=== PATIENT | male | born 1990 | race African-American/Black ===

== ENCOUNTER 2019-12-17 21:14 | Emergency (ER) | payer MEDICAID ==
[~2019-12-17] VITALS: Ht 177.8 cm; Wt 95.3 kg
[~2019-12-17 21:14] MED LIST: ARIP15TA2 PO; OLAN10TA3 PO
[2019-12-17 21:53] VITALS: BP_SYST 150
[2019-12-17] MEDS ORDERED: clonazePAM 0.5 MG TABLET PO ONE (22:45)
[2019-12-17 23:05] VITALS: BP_SYST 150
== END 2019-12-17 23:05 | disposition home or self-care (01) ==
LOC: SED 21:14
DX: F14.10 Cocaine abuse, uncomplicated (principal); F11.10 Opioid abuse, uncomplicated; F20.9 Schizophrenia, unspecified; F31.9 Bipolar disorder, unspecified; F17.200 Nicotine dependence, unspecified, uncomplicated; J45.909 Unspecified asthma, uncomplicated; Z88.6 Allergy status to analgesic agent
CPT/HCPCS: 99283

== ENCOUNTER 2021-04-12 00:58 | Emergency (ER) | payer MEDICAID, SELFPAY ==
[~2021-04-12] VITALS: Ht 180.3 cm; Wt 108.9 kg
[2021-04-12 00:58] VITALS: BP_SYST 187
--- NOTE | 2021-04-12 01:10 | NUR ---
ER Dr. Melton at bedside examining patient.
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
[2021-04-12] MEDS ORDERED: NACL 0.9% 1,000 ML IV ONE (01:30)
[2021-04-12] MEDS ORDERED: LORazepam 2 MG/ML VIAL IVP ONE ×2 (01:30→02:00)
--- NOTE | 2021-04-12 01:30 | NUR ---
# 18 gauge angiocath placed to right hand. Use of asceptic technique. Opsite placed over site. Blood return noted. Blood for lab drawn from site. Flushed with 10 cc of normal saline. No evidence of infiltration noted. Patient tolerated well.
--- NOTE | 2021-04-12 01:40 | NUR ---
Medicated w/ 2mg of ativan ivp per MD orders. IVF 0.9%NS x2000 ml infusing with no s/s of infiltration at this time. Will cont to monitor and observe for any adverse reaction. Bed to low position sr up, continue to monitor.
[2021-04-12 01:46] LABS: BASOPHILS # (AUTO) 0.1 K/uL (0.0-0.2); BASOPHILS % (AUTO) 0.7 % (0.0-2.0); EOSINOPHILS # (AUTO) 0.1 K/uL (0.0-0.4); EOSINOPHILS % (AUTO) 0.8 % (0.0-4.0); HEMATOCRIT 47.5 % (36-54); HEMOGLOBIN 15.5 g/dL (14.0-18.0); LYMPHOCYTES # (AUTO) 2.5 K/uL (1.0-5.5); LYMPHOCYTES % (AUTO) 14.3 % (20.5-51.5); MEAN CORPUSCULAR HEMOGLOBIN 29 pg (27-31); MEAN CORPUSCULAR HGB CONC 33 % (32-36); MEAN CORPUSCULAR VOLUME 90 fL (79.0-98.0); MONOCYTES # (AUTO) 1.8 K/uL (0.0-1.0); MONOCYTES % (AUTO) 10.1 % (1.7-9.3); NEUTROPHILS % (AUTO) 74.1 % (40.0-70.0); PLATELET COUNT (AUTO) 326 K/uL (130-430); RED CELL DISTRIBUTION WIDTH 15.6 % (9.0-15.0); WHITE BLOOD COUNT (AUTO) 17.5 K/uL (4.8-10.8)
[2021-04-12 01:58] LABS: ANION GAP 16 (5-15); CALCIUM 8.7 mg/dL (8.4-11.0); CHLORIDE 98 mmol/L (98-107); CREATININE 1.85 mg/dL (0.55-1.30); GLUCOSE 85 mg/dL (70-99); POTASSIUM 4.2 mmol/L (3.5-5.1); SODIUM SERUM 134 mmol/L (136-145); UREA NITROGEN, BLOOD 22 mg/dL (8-21)
[2021-04-12] MEDS ORDERED: HALOPERIDOL LACTATE 5 MG/ML VIAL ONE (01:58)
[2021-04-12] MEDS ORDERED: LORazepam 2 MG/ML VIAL ONE (01:58)
--- NOTE | 2021-04-12 01:59 | NUR ---
Patient continues w/ increased restlessness (singing out loud). Medicated w/ Haldol 5mg im and to be given 2nd dose of Ativan ivp per MD orders. IVF infusing with no s/s of infiltration at this time. Will cont to monitor and observe for any adverse reaction. Bed to low position sr up, continue to monitor.
[2021-04-12] MEDS ORDERED: HALOPERIDOL LACTATE 5 MG/ML VIAL IM ONE (02:00)
[2021-04-12 02:02] LABS: ACETAMINOPHEN < 1 ug/mL (1-30)
[2021-04-12 02:03] LABS: ALANINE AMINOTRANSFERASE 65 U/L (12-78); ALBUMIN 3.9 g/dL (3.4-4.8); ASPARTATE AMINOTRANSFERASE 136 U/L (10-37); CHOLESTEROL 289 mg/dL (<200); GFR AFRICAN AMERICAN 55 mL/min (>90); HDL CHOLESTEROL 24 mg/dL (>45); LDL CHOLESTEROL 244 mg/dL (<100); TOTAL BILIRUBIN 1.2 mg/dL (0.0-1.0); TRIGLYCERIDES 84 mg/dL (30-150)
[2021-04-12 02:04] LABS: ALCOHOL, BLOOD < 3 mg/dL (<10)
--- NOTE | 2021-04-12 02:20 | NUR ---
Patient accidentally dislodged iv to right hand, restarted iv h.l. # 20 gauge angiocath placed to left hand. Use of asceptic technique. Opsite placed over site. Blood return noted. Flushed with 10 cc of normal saline. No evidence of infiltration noted. Patient tolerated well.
--- NOTE | 2021-04-12 02:39 | NUR ---
patient pulled out 2nd iv h.l. to left hand. Patient returned to bed then fell to sleep. Will let patient sleep and will insert another h.l. upon patient complete rest or if further medications is needed. patient is cooperative and does allow iv h.l. to be started.
--- NOTE | 2021-04-12 04:51 | NUR ---
Asleep at this time w/ no bizarre or unusual behavior noted. continue to monitor. Patient resting quietly. No acute distress noted. Vital signs within normal range.
--- NOTE | 2021-04-12 07:11 | NUR ---
REPORT RECEIVED FROM BLAISE DOTSON FOR CONTINUING CARE. PT IS SLEEPING IN BED, NO DISTRESS, V/S STABLE
[2021-04-12] MEDS ORDERED: OLAN10TA3 PO (08:45)
--- NOTE | 2021-04-12 09:00 | NUR ---
PT REFUSING TO PROVIDE URINE SAMPLE
--- NOTE | 2021-04-12 09:19 | NUR ---
Patient given written and verbal discharge instructions and verbalizes understanding. ER MD discussed with patient the results and treatment provided. Patient in stable condition. ID arm band removed. Rx of OLANZAPINE given. Patient educated on pain management and to follow up with PMD. Pain Scale 0/10. Opportunity for questions provided and answered. Medication side effect fact sheet provided.
[2021-04-12 09:20] VITALS: BP_SYST 115
== END 2021-04-12 09:20 | disposition home or self-care (01) ==
LOC: SED 00:58
DX: F15.951 Other stimulant use, unspecified with stimulant-induced psychotic disorder with hallucinations (principal); I10 Essential (primary) hypertension; J45.909 Unspecified asthma, uncomplicated; Z88.5 Allergy status to narcotic agent; Z79.899 Other long term (current) drug therapy; Z20.822 Contact with and (suspected) exposure to COVID-19
CPT/HCPCS: 36415; 71045; 80053; 80061; 82962; 83036; 85025; 87426; 96361; 96372; 96374; 99291; G0480; G0481; G0482; J1630; J2060; J7030